=== PATIENT | female | born 1945 | race Caucasian/White ===

== ENCOUNTER 2025-10-28 17:36 | Observation (INO) ==
[2025-10-28 17:47] VITALS: RESP 16
--- NOTE | 2025-10-28 18:11 | ED.PDOC ---
General HPI ED Provider: Dr. CARLOS KLEIN MD Chief Complaint: Allergic Reaction Stated Complaint: Allergic reaction Time Seen by Provider: 10/28/25 17:50 Mode of Arrival: Walk-In Information Source: Patient Exam Limitations: No limitations Primary Care Provider: DANIELE MORROW APRN Nursing and Triage Documentation Reviewed and Agree: Yes Opioid Naive vs. Tolerant What is Opioid Naive?: *Opioid Naive implies the patient is not already taking opioids or not chronically receiving opioids on a daily basis. *PRN dosing is not "usually" associated with tolerance. *Patients are at higher risk of over-sedation and aspiration. What is Opioid Tolerant?: *Opioid Tolerance implies less than the expected response to an opioid. *Acquired tolerance is defined by the patient taking 60mg of oral morphine daily (or equianalgesic dose of another opioid) for 1 week or more. *Often associated with chronic pain. *May take more than usual dose to achieve desired pain control. Miscellaneous Complaint Exam Picture Picture: Patient is a 80-year-old female who presents with complaint of itching, rash and swelling of her lips and face. The patient states that her symptoms started around 2 PM and since then it has been progressively getting worse. Her cheeks feel tight and swollen. Patient states that she has been scratching all over her body including her head neck, arms belly and thighs. Patient denies any swelling of the tongue or difficulty breathing. Patient denies any choking sensation or foreign body sensation in the throat. Patient denies any dizziness, lightheadedness, nausea, vomiting, abdominal pain or urinary symptoms. Patient denies taking any new medications, cosmetics, detergents or new food or exposure. But on deep questioning, patient was recently diagnosed with UTI and completed the course of antibiotics, last dose was this morning. Patient does not remember the name of the antibiotic. Patient denies any other symptoms at this point of time. Review of Systems Review Of Systems Constitutional: Reports No symptoms Eyes: Reports No symptoms Ears, Nose, Mouth, Throat: Reports No symptoms Respiratory: Reports No symptoms Cardiac: Reports No symptoms GI: Reports No symptoms : Reports No symptoms Musculoskeletal: Reports No symptoms Skin: Reports Rash Neurological: Reports No symptoms Endocrine: Reports No symptoms Hematologic/Lymphatic: Reports No symptoms All Other Systems: Reviewed and Negative [facility] Medical History Encounter for vaccination Z23 - Encounter for immunization (ICD-10) Encounter for Medicare annual wellness exam Z00.00 - Encounter for general adult medical examination without abnormal findings (ICD-10) COVID-25 Sep 2023 U07.1 - COVID-19 (ICD-10) Recurrent UTI N39.0 - Urinary tract infection, site not specified (ICD-10) Cataract, left eye with surgery H26.9 - Unspecified cataract (ICD-10) Family History FATHER Polio Parkinson disease Mother Diabetes Pacemaker Cardiac arrest Stroke SISTER Heart disease Social History Smoking and tobacco status: Never smoker Alcohol intake: never Substance use type: does not use Special monika needs: No Agree to transfusion: Yes Adopted: No Caregiver/support person: No Foster care: No Household members: family and children Housing: house Daycare: no daycare Number of children: 1 service: No care home: No History of recent travel: No Do you think of yourself as: straight/heterosexual Current gender identity: female Seatbelt use: always Drives intoxicated or rides with intoxicated patrol driver: No Water heater temperature set < 120 degrees: Yes Working smoke detector in home: Yes Fire extinguisher in home: Yes Carbon monoxide detector in home: Yes Surgical History History of ERCP Z98.890 - Other specified postprocedural states (ICD-10) History of 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) History of cholecystectomy Z90.49 - Acquired absence of other specified parts of digestive tract (ICD- 10) Female Reproductive History Menstrual Hx Hysterectomy: No Hx Tubal Ligation: No Physical Exam Physical Exam Appearance: Reports No pain distress and Well-nourished Ill-appearing: None Pain Distress: None Eyes: Reports TONA, EOMI, Conjunctiva clear and Conjunctiva inflammed ENT: Reports Ears normal, Nose normal and Oropharynx normal Neck: Supple Respiratory: Reports Airway patent, Breath sounds clear, Breath sounds equal and Respirations nonlabored Cardiovascular: Reports RRR, Pulses normal and No murmur GI/: Reports Soft, Nontender and No masses Musculoskeletal: Reports Normal strength, ROM intact and No edema Skin: Reports Warm, Dry, Normal color and Not Examined (They are hives all over the body. Patient has edema and redness of the cheeks, lips mostly on the right side.) Neurological: Reports Sensation intact, Motor intact, Cranial nerves intact, Alert and Oriented Psychiatric: Reports Affect appropriate and Anxious Re-Evaluation Re-Evaluation Time of Re-Evaluation: 23:00 Status: Improved Vital Signs Stable: Yes Pain Level: 0 Appearance: NAD Lungs: Clear Skin: Warm and Dry Neuro: Alert and Oriented X3 CV: Other Course Course 10/29/25 04:45 10/29/25 04:45 Orders, Labs, Meds: Lab Review 10/28/25 10/28/25 10/28/25 18:30 18:40 19:03 WBC 10.92 H RBC 4.49 Hgb 12.9 Hct 38.6 MCV 86.0 MCH 28.7 MCHC 33.4 RDW Coeff of Merlin 12.6 Plt Count 257 Immature Gran % (Auto) 0.6 Neut % (Auto) 72.7 Lymph % (Auto) 19.8 [place] % (Auto) 3.8 Eos % (Auto) 2.7 Baso % (Auto) 0.4 Neut # (Auto) 8.0 H Lymph # (Auto) 2.2 [place] # (Auto) 0.4 Eos # (Auto) 0.3 Baso # (Auto) 0.0 Immature Gran # (Auto) 0.1 Sodium 133.6 L Potassium 3.74 Chloride 97.7 L Carbon Dioxide 25.0 Anion Gap 14.64 BUN 16.7 Creatinine 0.98 Estimated GFR (MDRD) 55.00 BUN/Creatinine Ratio 17.04 Glucose 377.0 H Calcium 9.18 Total Bilirubin 0.81 AST 27.6 ALT 31.9 Alkaline Phosphatase 103.1 Total Protein 6.70 Albumin 3.89 Globulin 2.81 Albumin/Globulin Ratio 1.38 Urine Color Yellow Urine Clarity Clear Urine pH 5.5 Ur Specific [place] 1.010 Urine Protein Negative Urine Glucose (UA) 3+ H Urine Ketones Negative Urine Blood Negative Urine Nitrite Negative Urine Bilirubin Negative Urine Urobilinogen 0.2 Ur Leukocyte Esterase Negative Orders Category Date Time Status ADMIT OBSERVATION [PLACE PATIENT OBSERVATION] .TO ADMISSION 10/28/25 23:22 Active MEDSURG (MONITORED BED) ACTIVITY .Up With Assistance CARE 10/28/25 23:27 Active BLOOD GLUCOSE MONITORING (MED/SURG) 0630,1100,1700,2100 CARE 10/28/25 23:27 Active GIVE HS SNACK 2100 CARE 10/28/25 23:27 Active INTAKE & OUTPUT Q8HR CARE 10/28/25 23:27 Active IP: INSERT SALINE LOCK ONCE CARE 10/28/25 23:27 Active TELEMETRY MONITORING TELE CARE 10/28/25 23:24 Active VITAL SIGNS Q4HR CARE 10/28/25 23:27 Active ADA 1800 MENDY. DIET DIETARY 10/29/25 Breakfast Ordered HS SNACK DIETARY 10/28/25 Dinner Ordered CBC W/ AUTO DIFF DAILY@0600 LAB 10/29/25 04:45 Completed CBC W/ AUTO DIFF DAILY@0600 LAB 10/30/25 06:00 Ordered CBC W/ AUTO DIFF Stat LAB 10/28/25 18:30 Completed CMP [COMPREHENSIVE METABOLIC PANEL] Stat LAB 10/28/25 19:03 Completed COMPREHENSIVE METABOLIC PANEL DAILY@0600 LAB 10/29/25 04:45 Completed COMPREHENSIVE METABOLIC PANEL DAILY@0600 LAB 10/30/25 06:00 Ordered UA [URINALYSIS C & S IF INDICATED] Stat LAB 10/28/25 18:40 Completed Acetaminophen [Tylenol] Meds 10/28/25 23:27 Active 650 mg PO Q4H PRN Diphenhydramine HCl [Benadryl] Meds 10/29/25 00:00 Active 50 mg PO Q6HR Diphenhydramine Inj [Benadryl] Meds 10/28/25 18:16 Discontinued 25 mg IM ONCE STA Famotidine Inj [Pepcid] Meds 10/29/25 09:00 Active 20 mg IVP BID Famotidine Inj [Pepcid] Meds 10/28/25 18:16 Discontinued 20 mg IVP ONCE STA Insulin Lispro [Humalog (10 ml Vial)] Meds 10/28/25 23:28 Active See Protocol SUBCUT PRN PRN Methylprednisolone Sod Succ/Pf [Solu-Medrol 125 mg] Meds 10/28/25 18:16 Discontinued 125 mg IVP ONCE ONE Methylprednisolone Sod Succ/Pf [Solu-Medrol 40 mg] Meds 10/29/25 00:00 Active 40 mg IVP Q8HR Ondansetron HCl/Pf [Zofran Sdv] Meds 10/28/25 23:27 Active 4 mg IVP Q6H PRN Ringers Lactated Solution [Lactated Ringers] 1,000 ml Meds 10/28/25 23:30 Active IV 100 mls/hr Medications Generic Name Dose Route Start Last Admin Trade Name Trina PRN Reason Stop Dose Admin Acetaminophen 650 mg 10/28/25 23:27 Acetaminophen 325 Mg Tablet PO Q4H PRN Mild Pain Diphenhydramine HCl 50 mg 10/29/25 00:00 10/29/25 05:03 Diphenhydramine Hcl 25 Mg Capsule PO 50 mg Q6HR DONTE Administration Famotidine 20 mg 10/29/25 09:00 Famotidine Inj 20 Mg/2 Ml Vial IVP BID DONTE Lactated Ringer's 1,000 mls @ 100 mls/hr 10/28/25 23:30 10/29/25 01:38 Lactated Ringers IV 100 mls/hr .Q10H DONTE Administration Insulin Human Lispro 0 unit 10/28/25 23:28 10/29/25 05:58 Insulin Lispro 100 Unit/Ml (10 Ml Vial) SUBCUT 12 unit PRN PRN Administration Hyperglycemia Protocol Methylprednisolone Sodium Succinate 40 mg 10/29/25 00:00 10/29/25 04:56 Methylprednisolone Sod Succ/Pf 40 Mg/Ml Vial IVP 40 mg Q8HR DONTE Administration Ondansetron HCl 4 mg 10/28/25 23:27 Ondansetron Hcl/Pf 4 Mg/2 Ml Sdv IVP Q6H PRN Nausea / Vomiting Discontinued Medications Generic Name Dose Route Start Last Admin Trade Name Trina PRN Reason Stop Dose Admin Diphenhydramine HCl 25 mg 10/28/25 18:16 10/28/25 18:43 Diphenhydramine Inj 50 Mg/Ml Vial IM 10/28/25 18:17 25 mg ONCE STA Administration Famotidine 20 mg 10/28/25 18:16 10/28/25 18:43 Famotidine Inj 20 Mg/2 Ml Vial IVP 10/28/25 18:17 20 mg ONCE STA Administration Methylprednisolone Sodium Succinate 125 mg 10/28/25 18:16 10/28/25 18:44 Methylprednisolone Sod Succ/Pf 125 Mg/2 Ml Vial IVP 10/28/25 18:17 125 mg ONCE ONE Administration Vital Signs: Temp Pulse Resp BP Pulse Ox 10/28/25 17:43 98.1 F 115 H 16 154/84 H 98 Differential diagnosis include but not limited to contact dermatitis, medication induced allergy, anaphylactic reaction, angioedema, insect bite ER course: Patient is a 80-year-old female who presented with allergic reaction, most likely to the antibiotic. Patient was administered Solu-Medrol 125 mg, Pepcid 20 mg and Benadryl 25 mg. Patient was reevaluated, feels better. Patient is a type II diabetic and her blood sugars are elevated. With patient continuing to have symptoms even though improved and her blood sugars trending high and patient being treated with steroids, will get her in for observation. Discussed with GUI Guy and the patient was admitted to the hospitalist. Discharge Plan Discharge Patient Disposition: PLACED OBSERVATION Discharge Problem: Allergic reaction Qualifiers: Encounter type: initial encounter Qualified Code(s): T78.40XA - Allergy, unspecified, initial encounter Did you review [place] [facility] for ALL controlled substances?: No ED Provider: CARLOS KLEIN Condition: Stable
[2025-10-28 18:33] LABS: IMMATURE GRANULOCYTE # (AUTO) 0.1 (0.0-1.0); IMMATURE GRANULOCYTE % (AUTO) 0.6 % (0.0-5.0); RDW COEFFICIENT OF VARIATION 12.6 % (11.6-14.8)
[2025-10-28] MEDS: BENADRYL IM STA (18:43)
[2025-10-28] MEDS: PEPCID IVP STA (18:43)
[2025-10-28] MEDS: SOLU-MEDROL 125 MG IVP ONE (18:44)
[2025-10-28 19:04] LABS: LEUKOCYTE ESTERASE ,URINE Negative (NEGATIVE); URINE, BLOOD Negative (NEGATIVE)
[2025-10-28 19:10] LABS: GLUCOSE, URINE (UA) 3+ (NEGATIVE)
[2025-10-28 19:26] LABS: CREATININE 0.98 mg/dL (0.60-1.30)
[2025-10-28] MEDS ORDERED: ZOFRAN SDV IVP PRN (23:27)
[2025-10-28] MEDS ORDERED: TYLENOL PO PRN (23:27)
[2025-10-29] MEDS: BENADRYL PO SCH (01:33)
[2025-10-29] MEDS: SOLU-MEDROL 40 MG IVP SCH (01:33)
[2025-10-29] MEDS: LACTATED RINGERS 1,000 ML IV SCH (01:38)
[2025-10-29 01:42] VITALS: BMI 32.3
[2025-10-29 05:18] LABS: IMMATURE GRANULOCYTE # (AUTO) 0.1 (0.0-1.0); IMMATURE GRANULOCYTE % (AUTO) 0.9 % (0.0-5.0); RDW COEFFICIENT OF VARIATION 12.6 % (11.6-14.8)
[2025-10-29 05:38] LABS: CREATININE 0.96 mg/dL (0.60-1.30)
[2025-10-29] MEDS: HUMALOG (10 ML VIAL) SUBCUT PRN (05:58)
[2025-10-29] MEDS: PEPCID IVP SCH (08:56)
[2025-10-29] MEDS: SYNTHROID PO SCH ×2 (10:16)
[2025-10-29] MEDS: PRILOSEC PO SCH (10:17)
[2025-10-29] MEDS: ASPIRIN EC PO SCH (10:17)
[2025-10-29] MEDS: VITAMIN D PO SCH (10:17)
[2025-10-29] MEDS: LIPITOR PO SCH (10:17)
[2025-10-29] MEDS: LANTUS SUBCUT SCH (10:18)
[2025-10-29 10:23] VITALS: TEMP 97.6
--- NOTE | 2025-10-29 11:24 | PCM.SS ---
Provider Provider: KATHI CERDA PA-C, [facility] Admission Date Admission Date: 10/28/25 Discharge Date Discharge Date: 10/29/25 Primary Care Physician Primary Care Physician: DANIELE MORROW APRN Chief Complaint Reason For Visit: RASH / HIVES + SWOLLEN LIP History of Present Illness History of Present Illness: Admitted 10/29/25 00:26, this 80 year old /WHITE/F with past medical history of hyperlipidemia, insulin-dependent diabetes, hypothyroidism, hypertension, GERD who presented to the ER with worsening rash and swelling of her face. Patient has been dealing with yeastlike rash and itching symptoms in her groin and vaginal area. She saw a provider in the last couple weeks and was prescribed Diflucan and Macrobid. She was also prescribed nystatin cream and powder since then. She states she was told she had an E. coli UTI. She finished the Macrobid on Saturday 10/27. On 10/28 she started having hives, lip swelling, significant itching. In the ER she was treated with Solu-Medrol, Pepcid, Benadryl. She mildly improved but still continued to have facial swelling and hives. She was admitted in observation overnight. Patient does have Jardiance listed on her medication list however she states she filled this but has not started it. We discussed to not take that medication as it can worsen UTI and yeast symptoms. We discussed that nystatin powder or cream is okay to continue. Discussed that she likely is having an allergic reaction to the Macrobid as she had just taken that. She is on a lisinopril combination pill. Her rash and lip swelling is significantly improved today. She states that her tongue was not affected. She feels her speech is her normal. Her glucose is running high likely from the steroids. We discussed covering that with her sliding scale. Will discharge her on a few more days of prednisone as she does have some mild hives remaining. Discussed adding Macrobid to her allergy list. Follow-up with PCP regarding yeast like infection, she states that this is overall improved. Discussed with her that her urinalysis was negative for acute infection at this time. [facility] Medical History Encounter for vaccination Z23 - Encounter for immunization (ICD-10) Encounter for Medicare annual wellness exam Z00.00 - Encounter for general adult medical examination without abnormal findings (ICD-10) COVID-25 Sep 2023 U07.1 - COVID-19 (ICD-10) Recurrent UTI N39.0 - Urinary tract infection, site not specified (ICD-10) Cataract, left eye with surgery H26.9 - Unspecified cataract (ICD-10) Surgical History History of ERCP Z98.890 - Other specified postprocedural states (ICD-10) History of 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) History of cholecystectomy Z90.49 - Acquired absence of other specified parts of digestive tract (ICD- 10) Family History FATHER Polio Parkinson disease Mother Diabetes Pacemaker Cardiac arrest Stroke SISTER Heart disease Social History Smoking and tobacco status: Never smoker Alcohol intake: never Substance use type: does not use Special monika needs: No Agree to transfusion: Yes Adopted: No Caregiver/support person: No Foster care: No Household members: family and children Housing: house Daycare: no daycare Number of children: 1 service: No intermediate: No History of recent travel: No Do you think of yourself as: straight/heterosexual Current gender identity: female Seatbelt use: always Drives intoxicated or rides with intoxicated intermodal truck driver: No Water heater temperature set < 120 degrees: Yes Working smoke detector in home: Yes Fire extinguisher in home: Yes Carbon monoxide detector in home: Yes Medications Mecications: Medications at Discharge (Home Meds & RX) vckezklg-iwh-lyrik acid 0.4 mg-lycopene 300 mcg-lutein 250 mcg tablet (Centrum Silver) 1 tab PO DAILY 02/24/23 omega-3 fatty acids 1,000 mg capsule 2,000 mg PO BID 02/24/23 mupirocin 2 % topical ointment See Rx Instructions .Route .COMPLEX #22 ea 10/13/23 pen needle, diabetic 31 gauge x 3/16" (BD Ultra-Fine Mini Pen Needle) #100 inserts 10/01/24 blood sugar diagnostic (Accu-Chek Keyona Plus test strips) #100 ea 12/17/24 pen needle, diabetic 29 gauge x 1/2" (Ultra-Thin II Insulin Pen Mcdonald) #100 ea 12/31/24 lancets (Accu-Chek Softclix Lancets) #200 ea 05/07/25 triamcinolone acetonide 0.1 % topical ointment 1 applic topical BID #30 grams 05/21/25 atorvastatin 20 mg tablet 20 mg PO DAILY #90 tabs 07/02/25 lisinopril 20 mg-hydrochlorothiazide 25 mg tablet 1 tab PO DAILY #90 tabs 07/31/25 empagliflozin 25 mg tablet (Jardiance) 25 mg PO QDAY #30 tabs 09/11/25 fluconazole 150 mg tablet 150 mg PO QDAY 1 dose #1 tab 10/28/25 nystatin 100,000 unit/gram topical cream 1 applic topical TID #15 grams 10/28/25 aspirin 81 mg capsule 81 mg PO DAILY 10/29/25 calcium 315 mg (as citrate)-vitamin D3 5 mcg (200 unit) tablet 2 tab PO BID 10/29/25 carboxymethylcellulose 0.5 %-glycerin 0.9 % eye drops (Refresh Relieva) 1 drp BOTHEYES BID-TID PRN dry eye(s) 10/29/25 cetirizine 10 mg tablet (24Hour Allergy) 10 mg PO DAILY PRN allergy symptoms 10/29/25 cholecalciferol (vitamin D3) 50 mcg (2,000 unit) tablet (D3 DOTS) 50 mcg PO DAILY 10/29/25 clotrimazole-betamethasone 1 %-0.05 % topical cream 1 applic topical BID PRN Itching/Burning 10/29/25 insulin glargine 100 unit/mL (3 mL) subcutaneous pen (Lantus Solostar U-100 Insulin) 85 unit subcut DAILY E11.9 DM2 10/29/25 insulin lispro 100 unit/mL subcutaneous pen (Humalog KwikPen (U-100) Insulin) See Rx Instructions .Route .COMPLEX 10/29/25 levothyroxine 137 mcg tablet 137 mcg PO DAILY 10/29/25 menthol 0.44 %-zinc oxide 20.6 % topical ointment (CalaSoothe) 1 applic topical 3-4XD PRN skin irritation 10/29/25 omeprazole 20 mg capsule,delayed release 20 mg PO DAILY 10/29/25 potassium chloride 20 mEq tablet,extended release(part/cryst) 20 meq PO BID 10/29/25 Allergies Allergies Allergy/AdvReac Type Severity Reaction Status Date / Time nitrofurantoin (From Allergy Intermediate Rash Verified 10/29/25 11:37 Macrobid) silicone Allergy Mild Rash Verified 10/28/25 17:47 Sulfa (Sulfonamide Allergy Mild Hives Verified 10/28/25 17:47 Antibiotics) adhesive tape Allergy Unknown Verified 10/28/25 17:47 Review of Systems Constitutional: Denies Fever Head: Reports Normocephalic and Atraumatic Cardiovascular: Denies Chest pain Respiratory: Denies Cough or Shortness of air Gastrointestinal: Denies Nausea, Vomiting, Diarrhea or Abdominal pain Genitourinary: Reports Other (+yeast infection ); Denies Dysuria or Frequency Dermatologic: Reports Rashes Neurological: Denies Headache, Dizziness or Syncope Physical Examination Appearance: Positive No Apparent Distress and Alert and Oriented x3 Head: Positive Normocephalic and Atraumatic Neck: Positive Supple and Trachea Midline Heart: Positive RRR Respiratory: Positive Breath Sounds Clear, Bilaterally, Breath Sounds Equal and Respirations Nonlabored; Negative Crackles, Rhonchi or Wheezes GI/: Positive Soft, Nontender, Bowel sounds normal and No Distention Extremities: Negative Edema Neurological: Positive Cranial nerves intact, Alert and Oriented Psychiatric: Positive Normal Judgement, Normal Insight, Affect Appropriate and Mood Appropriate Additional Findings: No significant candidasis noted of groin area. Some mild hives noted to inner thighs and arms. No facial swelling. Speaks full sentences. Airway intact. Vital Signs (Last 4 Hours) Vital Signs Last 4 Hours: Vital Signs: Last 4 Hours 10/29/25 08:00 10/29/25 09:00 10/29/25 09:59 Temperature Temperature Source Pulse Rate Blood Pressure Blood Pressure Mean Blood Pressure Location O2 Sat by Pulse Oximetry Oxygen Delivery Method Room Air Room Air Room Air 10/29/25 10:00 10/29/25 11:00 Temperature 97.6 F Temperature Source Temporal Artery Scan Pulse Rate 80 Blood Pressure 136/75 Blood Pressure Mean 95 Blood Pressure Location Left Arm O2 Sat by Pulse Oximetry 96 Oxygen Delivery Method Room Air Room Air Labs This Visit Labs This Visit: Labs This Visit 10/28/25 10/28/25 10/28/25 18:30 18:40 19:03 WBC 10.92 H RBC 4.49 Hgb 12.9 Hct 38.6 MCV 86.0 MCH 28.7 MCHC 33.4 RDW Coeff of Merlin 12.6 Plt Count 257 Immature Gran % (Auto) 0.6 Neut % (Auto) 72.7 Lymph % (Auto) 19.8 [place] % (Auto) 3.8 Eos % (Auto) 2.7 Baso % (Auto) 0.4 Neut # (Auto) 8.0 H Lymph # (Auto) 2.2 [place] # (Auto) 0.4 Eos # (Auto) 0.3 Baso # (Auto) 0.0 Immature Gran # (Auto) 0.1 Sodium 133.6 L Potassium 3.74 Chloride 97.7 L Carbon Dioxide 25.0 Anion Gap 14.64 BUN 16.7 Creatinine 0.98 Estimated GFR (MDRD) 55.00 BUN/Creatinine Ratio 17.04 Glucose 377.0 H Calcium 9.18 Total Bilirubin 0.81 AST 27.6 ALT 31.9 Alkaline Phosphatase 103.1 Total Protein 6.70 Albumin 3.89 Globulin 2.81 Albumin/Globulin Ratio 1.38 Urine Color Yellow Urine Clarity Clear Urine pH 5.5 Ur Specific [place] 1.010 Urine Protein Negative Urine Glucose (UA) 3+ H Urine Ketones Negative Urine Blood Negative Urine Nitrite Negative Urine Bilirubin Negative Urine Urobilinogen 0.2 Ur Leukocyte Esterase Negative 10/29/25 04:45 WBC 12.56 H RBC 4.16 L Hgb 11.8 L Hct 35.7 L MCV 85.8 MCH 28.4 MCHC 33.1 RDW Coeff of Merlin 12.6 Plt Count 253 Immature Gran % (Auto) 0.9 Neut % (Auto) 91.0 H Lymph % (Auto) 7.[address] [place] % (Auto) 0.5 Eos % (Auto) 0.0 Baso % (Auto) 0.2 Neut # (Auto) 11.4 H Lymph # (Auto) 0.9 [place] # (Auto) 0.1 L Eos # (Auto) 0.0 Baso # (Auto) 0.0 Immature Gran # (Auto) 0.1 Sodium 132.6 L Potassium 4.53 Chloride 98.6 Carbon Dioxide 23.7 Anion Gap 14.83 BUN 20.3 H Creatinine 0.96 Estimated GFR (MDRD) 56.00 BUN/Creatinine Ratio 21.14 Glucose 487.2 H D Calcium 9.05 Total Bilirubin 0.70 AST 31.7 ALT 32.0 Alkaline Phosphatase 106.7 Total Protein 6.51 Albumin 3.76 Globulin 2.75 Albumin/Globulin Ratio 1.36 Urine Color Urine Clarity Urine pH Ur Specific [place] Urine Protein Urine Glucose (UA) Urine Ketones Urine Blood Urine Nitrite Urine Bilirubin Urine Urobilinogen Ur Leukocyte Esterase Imaging Imaging: None Review Review Statement: I have independently reviewed and interpreted the labs/EKGs/imaging that were ordered by the ER provider. I have reviewed all outside records that are a vailable currently in our EMR including imaging/notes/labs from previous visits. Plan Reccomendations/Plan: 1. Allergic reaction due to medication - likely the macrobid she just took. Will add to allergy list. Steroids, pepcid, and benadryl ordered overnight. 2. DM - glucose elevated with steroids, cover with sliding scale, cont home lantus, diabetic diet 3. Hypertension - Cont home meds, on lisinopril, less likely angioedema from yair-i as she had just taken the antibiotic. 4. Candidasis of groin/genital area - improved, may continue topicals prn 5. Hypothyroidism - Cont home meds Patient does have Jardiance listed on her medication list however she states she filled this but has not started it. We discussed to not take that medication as it can worsen UTI and yeast symptoms. We discussed that nystatin powder or cream is okay to continue. Discussed that she likely is having an allergic reaction to the Macrobid as she had just taken that. She is on a lisinopril combination pill. Her rash and lip swelling is significantly improved today. She states that her tongue was not affected. She feels her speech is her normal. Her glucose is running high likely from the steroids. We discussed covering that with her sliding scale. Will discharge her on a few more days of prednisone as she does have some mild hives remaining. Discussed adding Macrobid to her allergy list. Follow-up with PCP regarding yeast like infection, she states that this is overall improved. Discussed with her that her urinalysis was negative for acute infection at this time. 1. Allergic reaction due to medication - improved 2. DM 3. Hypertension 4. Candidasis of groin/genital area - improved 5. Hypothyroidism 6. Hyperlipidemia Additional Planning: Case discussed with ED Physician, Dr. Kellogg. DVT Prophylaxis: Ambulation Advanced Care Plannin minutes spent discussing advance care planning. Admit to: Obs Discussed Plan of Care with Dr. Nino Benavides. Review With Patient Reviewed with Patient and Family: Patient and family have been counseled on condition and care plan and have no immediate questions. I have personally discussed and reviewed the patient's visit/current labs/im aging/decision making with Dr. Nino Benavides, my supervising attending. Total number of minutes spent with patient [85] min. More than 50% of the time spent with this patient was devoted to counseling and coordination of care. Time of Admission:10/29/25 00:26 Time of Discharge: 10/29/25 0845 Discharge Plan Discharge Discharge Orders: Discharge Patient (ONCE); Ordered 10/29/25 Ordered By: KATHI CERDA Activity Restrictions/Additional Instructions: DISCHARGE TO HOME DX: ALLERGIC REACTION FOLLOW UP WITH Primary Care Provider PHARMACY: [facility] DIET: Diabetic ACTIVITY: As tolerated MACROBID HAS BEEN ADDED AN ALLERGY FOR YOU, AVOID TAKING IN FUTURE PREDNISONE (STEROID FOR RASH) HAS BEEN SENT IN FOR YOU, HOWEVER IT MAY CAUSE YOUR SUGARS TO BE ELEVATED YOU SHOULD MONITOR YOUR BLOOD SUGARS AT HOME AND RECORD AND TAKE WITH YOU TO YOUR FOLLOW UP VISIT. DO NOT START THE JARDIANCE WHILE DEALING WITH YEAST INFECTIONS, TALK TO YOUR Primary Care Provider MORE ABOUT IT FLUCONAZOLE (YEAST MEDICATION) IS OKAY TO TAKE IF NEEDED NYSTATIN POWDER OR CREAM IS FINE TO USE IF NEEDED Instructions: Prednisone (By mouth), Nystatin (On the skin), Fluconazole (By mouth), Urticaria (GEN), Antibiotic Medication Allergy (DC) Patient Disposition: HOME SELF-CARE Prescriptions: New prednisone 20 mg tablet 20 mg PO BID 3 Days Qty: 6 0RF Rx Instructions: START TONIGHT 10/29 Continued mupirocin 2 % ointment See Rx Instructions .ROUTE .COMPLEX Qty: 22 1RF Dose Instruction: APPLY TO AFFECTED AREA TWICE DAILY Rx Instructions: APPLY TO AFFECTED AREA TWICE DAILY atorvastatin 20 mg tablet 20 mg PO DAILY Qty: 90 1RF Patient Comments: Once in the evening. lisinopril-hydrochlorothiazide 20-25 mg tablet 1 tab PO DAILY Qty: 90 1RF Patient Comments: In the morning. fluconazole 150 mg tablet 150 mg PO QDAY Qty: 1 0RF Rx Instructions: administer on day 1 of therapy nystatin 100,000 unit/gram cream 1 applic topical TID Qty: 15 2RF aspirin 81 mg capsule 81 mg PO DAILY cetirizine [24Hour Allergy] 10 mg tablet 10 mg PO DAILY PRN (Reason: allergy symptoms) cholecalciferol (vitamin D3) [D3 DOTS] 50 mcg (2,000 unit) tablet 50 mcg PO DAILY Refresh Relieva 0.5-0.9 % drops 1 drp BOTHEYES BID-TID PRN (Reason: dry eye(s)) menthol-zinc oxide [CalaSoothe] 0.44-20.6 % ointment 1 applic topical 3-4XD PRN (Reason: skin irritation) calcium citrate-vitamin D3 315 mg-5 mcg (200 unit) tablet 2 tab PO BID levothyroxine 137 mcg tablet 137 mcg PO DAILY Patient Comments: Before Breakfast potassium chloride 20 mEq tablet,ER particles/crystals 20 meq PO BID clotrimazole-betamethasone 1-0.05 % cream 1 applic topical BID PRN (Reason: Itching/Burning) omeprazole 20 mg capsule,delayed release(DR/EC) 20 mg PO DAILY Patient Comments: Before breakfast daily and before bed as needed. Rx Instructions: TAKE 1 CAPSULE DAILY insulin lispro [Humalog KwikPen Insulin] 100 unit/mL insulin pen See Rx Instructions .ROUTE .COMPLEX Rx Instructions: SEE SLIDING SCALE 130 or less: 14 Units 131-150: 16 Units 151-200: 18 Units 201-250: 20 Units 251-300: 22 Units 301-350: 24 Units 351-400: 26 Units >400: 30 Units insulin glargine [Lantus Solostar U-100 Insulin] 100 unit/mL (3 mL) insulin pen 85 unit subcut DAILY Patient Comments: In the morning. Rx Instructions: please supply with a 90 days Centrum Silver 0.4 mg-300 mcg- 250 mcg tablet 1 tab PO DAILY omega-3 fatty acids 1,000 mg capsule 2,000 mg PO BID Discontinued Jardiance 25 mg tablet 25 mg PO QDAY Qty: 30 2RF triamcinolone acetonide 0.1 % ointment 1 applic topical BID Qty: 30 2RF No Action (DME) pen needle, diabetic [BD Ultra-Fine Mini Pen Needle] 31 gauge x 3/16" needle See Rx Instructions .ROUTE .COMPLEX Qty: 100 5RF Dose Instruction: USE DIRECTED FOUR TIMES A DAY WITH INSULIN (PATIENT REQUESTED BD BRAND) Rx Instructions: USE DIRECTED FOUR TIMES A DAY WITH INSULIN (PATIENT REQUESTED BD BRAND) (DME) Accu-Chek Keyona Plus test strp Strip See Rx Instructions .ROUTE .COMPLEX Qty: 100 5RF Dose Instruction: DIRECTED E11.9 DM2 TEST THREE TIMES DAILY Rx Instructions: DIRECTED E11.9 DM2 TEST THREE TIMES DAILY (DME) pen needle, diabetic [Ultra-Thin II Ins Pen Mcdonald] 29 gauge x 1/2" needle See Rx Instructions .ROUTE Qty: 100 0RF Rx Instructions: As directed DM2 E11.9 TEST THREE TIMES DAILY (DME) lancets [Accu-Chek Softclix Lancets] Misc See Rx Instructions .ROUTE Qty: 200 5RF Rx Instructions: As directed E11.9 DM2 TEST THREE TIMES DAILY Did you review [place] [employer] for ALL controlled substances?: Not Applicable Discussed opioids are addictive and Narcan is available by prescription or from pharmacy.: No Condition: Stable Referrals: DANIELE MORROW APRN [Primary Care Provider, CARDIOLOGY] - 11/04/25 9:20 am
[2025-10-29 14:43] VITALS: BP 132/64; PULSE 93
== END 2025-10-29 15:20 | disposition home or self-care (01) ==
LOC: MEDSURG B 17:36 → ED 17:36 → MEDSURG B 10-29 01:15
PROVIDERS: ADMIT Hospitalist; ATTEND Physician Assistant